=== PATIENT | male | born 1965 | race Caucasian/White ===

== ENCOUNTER 2023-03-30 07:19 | Emergency (ER) | payer OTHER, SELFPAY ==
[2023-03-30 07:24] VITALS: BP 107/64; PULSE 75; TEMP 35.8; O2SAT 98
--- NOTE | 2023-03-30 07:28 | ECG_ITS ---
Measurements Intervals [place] Rate: 76 P: 56 WA: 159 QRS: 11 QRSD: 111 T: -23 QT: 368 QTc: 415 Interpretive Statements SINUS RHYTHM MODERATE VOLTAGE CRITERIA FOR LVH, CONSIDER NORMAL VARIANT [MEETS CRITERIA IN ONE OF: R(aVL), S(V1), R(V5), R(V5/V6)+S(V1)] INFERIOR MYOCARDIAL INFARCTION , OF INDETERMINATE AGE [40+ ms Q WAVE AND/OR ST/T ABNORMALITY IN II/aVF] ABNORMAL ECG NO PREVIOUS ECG AVAILABLE FOR COMPARISON Electronically Signed On 04-03-2023 9:14:05 CDT by Jose Manzano M.D.
[2023-03-30] MEDS: ONDANSETRON INJ 4 MG/2 ML VIAL IV PUSH (07:35)
[2023-03-30] MEDS: PANTOPRAZOLE SODIUM IV 40 MG VIAL IV PUSH (07:35)
[2023-03-30] MEDS: MAG HYDROX/ALUMINUM HYD/SIMETH 30 ML, PHENobarb/HYOSCY/ATROPINE/SCOP 32.4 MG, LIDOCAINE... PO (07:35)
[2023-03-30] MEDS: SODIUM CHLORIDE 0.9% IV 1,000 ML 999 ML IV CONT (07:36)
[2023-03-30 07:46] LABS: Basophils Absolute Auto 0.07 K/mm3 (0.00-0.10); Basophils Percent Auto 0.6 % (0.0-1.0); Eosinophils Absolute Auto 0.06 K/mm3 (0.02-0.50); Eosinophils Percent Auto 0.5 % (1.0-6.0); Hematocrit 40.1 % (40.0-54.0); Hemoglobin 13.1 g/dL (14.0-18.0); Immature Granulocyte Absolute 0.07 K/mm3 (0.00-0.00); Immature Granulocyte Percent A 0.6 % (0.0-0.0); Lymphocytes Absolute Auto 2.34 K/mm3 (1.10-4.50); Lymphocytes Percent Auto 20.4 % (18.0-42.0); Mean Corpuscular HGB Conc 32.7 g/dL (32.0-36.0); Mean Corpuscular Volume 94.8 fL (78.0-102.0); Mean Platelet Volume 10.4 fl (8.7-11.0); Monocytes Absolute Auto 0.83 K/mm3 (0.10-0.90); Monocytes Percent Auto 7.2 % (2.0-11.0); Neutrophils Absolute Auto 8.1 K/mm3 (1.7-7.2); Neutrophils Percent Auto 70.7 % (50.0-70.0); Platelet Count Result 172 K/mm3 (150-420); Red Blood Count 4.23 M/mm3 (4.70-6.10); Red Cell Distribution Width 13.4 % (11.6-14.4); White Blood Count 11.5 K/mm3 (4.8-10.8)
[2023-03-30 08:04] LABS: Alanine Aminotransferase 51 U/L (16-63); Albumin Level 3.9 g/dL (3.4-5.0); Alkaline Phosphatase 43 U/L (46-116); Anion Gap 11 mmol/L (8-16); Aspartate Amino Transferase 46 U/L (15-37); Bilirubin,Total 0.4 mg/dL (0.00-1.00); Blood Urea Nitrogen 17 mg/dL (7-18); Calcium 9.2 mg/dL (8.5-10.1); Carbon Dioxide 25 mmol/L (21-32); Chloride 104 mmol/L (98-108); Estimated CRCL calculation 70 ml/min; Estimated Glomerular Filt Rate 60; Glucose 188 mg/dL (70-99); Lipase 27 U/L (16-77); Osmolality Calculated 296 mOsm/kg (285-295); Potassium 3.7 mmol/L (3.5-5.1); Sodium 140 mmol/L (136-145); Total Protein 8.1 g/dL (6.4-8.2); Troponin I 11.8 ng/L (0.00-60.4)
[2023-03-30 08:18] LABS: Lactic Acid Reflex 1.6 mmol/L (0.4-2.0)
[2023-03-30] MEDS: MORPHINE SULFATE (*CRX) 2 MG/ML INJ IV PUSH (08:21)
--- NOTE | 2023-03-30 08:23 | ED.ABDPAIN ---
HPI - Abdominal Pain General Chief Complaint: Abdominal Pain Stated Complaint: stomach pain Time Seen by Provider: 03/30/23 07:21 Source: patient and family Mode of arrival: ambulatory Limitations: no limitations History of Present Illness HPI narrative: this is a 57-year-old male that presents with some epigastric pain has a history of gastritis and pain and burning sensation started around 2 in the morning and woke patient up, patient did try taking [id number] medication with minimal relief. Patient denies any fever chills does have some nausea with no vomiting no chest pain no shortness of breath. MD elicited complaint: abdominal pain Pertinent past history: gastritis Onset (ago): hour(s) Pain Consistency: constant Location: epigastric Severity: moderate Related Data Home Medications Medication Instructions Recorded Confirmed amlodipine 10 mg tablet 10 mg PO DAILY 03/30/23 03/30/23 hydrochlorothiazide 12.5 mg tablet 12.5 mg PO DAILY 03/30/23 03/30/23 losartan 50 mg tablet 50 mg PO DAILY 03/30/23 03/30/23 naproxen 500 mg tablet 500 mg PO BID PRN Pain (Scale 03/30/23 03/30/23 Score 4-6) simvastatin 10 mg tablet 10 mg PO DAILY 03/30/23 03/30/23 Allergies Allergy/AdvReac Type Severity Reaction Status Date / Time No Known Allergies Allergy Verified 03/30/23 07:28 Review of Systems Review of Systems: All systems reviewed & are unremarkable except as noted in HPI and below PMFSH Past Medical History Medical History Gastritis Exam Const: General: healthy appearing Nutritional Appearance: well nourished Orientation/consciousness: patient oriented x3 HENMT: Head: normal to inspection Eyes: Conjunctivae: conjunctivae normal Neck: Neck: normal visual inspection Chest: Chest palpation & inspection: normal inspection of the chest Resp: Effort & Inspection: normal respiratory effort Cardio: Rate: regular rate Rhythm: regular rhythm GI: GI Palp: Yes Soft to palpation and Yes Tenderness to palpation present (GI) : General: Yes bladder normal to palpation Urinary Catheter: Urinary Catheter: patent and draining Back/Spine/Pelvis: Back: no CVA tenderness Skin: General skin exam: normal color Rashes: no rashes Neuro: General: patient oriented x3 and moves all extremities Extrem: General: normal to inspection Psych: Mental Status: mental status grossly normal Affect: normal affect Other: patient received GI cocktail and IV Protonix with maybe mild relief of his discomfort, does continue to complain of some discomfort at epigastric pain and a dose of 2mg IV morphine is given. Patient had an EKG which will was normal sinus rhythm with no ST or T changes negative troponin and the rest of his blood work reviewed with patient and family. Course Vital Signs Vital signs: Vital Signs Temperature 35.8 C L 03/30/23 07:24 Pulse Rate 75 03/30/23 07:24 Blood Pressure 107/64 03/30/23 07:24 Pulse Oximetry 98 03/30/23 07:24 Oxygen Delivery Room Air 03/30/23 07:24 Temperature 35.8 C L 03/30/23 07:24 Pulse Rate 75 03/30/23 07:24 Blood Pressure 107/64 03/30/23 07:24 Pulse Oximetry 98 03/30/23 07:24 Oxygen Delivery Room Air 03/30/23 07:24 MDM - Abdominal Pain Lab Data 03/30/23 07:41 03/30/23 07:41 Labs: Lab Results 03/30/23 Range/Units 07:41 WBC 11.5 H (4.8-10.8) K/mm3 RBC 4.23 L (4.70-6.10) M/mm3 Hgb 13.1 L (14.0-18.0) g/dL Hct 40.1 (40.0-54.0) % MCV 94.8 (78.0-102.0) fL MCH 31.0 (27.0-31.0) pg MCHC 32.7 (32.0-36.0) g/dL RDW 13.4 (11.6-14.4) % Plt Count 172 (150-420) K/mm3 MPV 10.4 (8.7-11.0) fl Immature Gran % (Auto) 0.6 H (0.0-0.0) % Neut % (Auto) 70.7 H (50.0-70.0) % Lymph % (Auto) 20.4 (18.0-42.0) % [place] % (Auto) 7.2 (2.0-11.0) % Eos % (Auto) 0.5 L (1.0-6.0) % Baso % (Auto) 0.6 (0.0-1.0) % Lymph
[2023-03-30 08:40] VITALS: BP 109/68; PULSE 71; TEMP 36.2; O2SAT 90
== END 2023-03-30 08:50 | disposition home or self-care (01) ==
PROVIDERS: Emergency Provider Emergency Medicine; PCP Physician Assistant
DX: K21.00 Gastro-esophageal reflux disease with esophagitis, without bleeding (principal); Z79.1 Long term (current) use of non-steroidal anti-inflammatories (NSAID)
CPT/HCPCS: 36415; 80053; 83605; 83690; 84484; 85025; 93005; 96361; 96374; 96375; 99284; A9270; C9113; J2270; J2405; J7030

== ENCOUNTER 2023-03-30 09:50 | Emergency (ER) | payer OTHER, SELFPAY ==
--- NOTE | ~2023-03-30 | CT_ITS ---
EXAMINATION: CT abdomen pelvis w con DATE: 03/30/2023 10:22 INDICATION: Right-sided abdominal pain. TECHNIQUE: Computed tomography (CT) of the abdomen and pelvis was performed with 100 mL Omnipaque 350 intravenous contrast. Automated exposure control and iterative reconstruction technique were employe d. The dose-length product was 1197.56 mGy-cm. COMPARISON: None. FINDINGS: The visualized portions of the lung bases demonstrate mild atelectasis. No pleural effusion . The heart size is normal. There are coronary artery calcifications. No pericardial effusion. There is diffuse hepatic steatosis. There are gallstones in the gallbladder and cystic duct. The gallbladde r is distended with wall thickening. The spleen, pancreas, adrenal glands, and right kidney are valdo l. There is a 19 mm cyst in left kidney. There are no dilated loops of bowel. The appendix is not vis ualized. There is fat in left inguinal canal that may be a hernia. There are no pathologically enlarg ed lymph nodes. There is no free intraperitoneal fluid. Aortic atherosclerosis is noted. There is mod erate thoracic and lumbar spondylosis. There is mild chronic anterior wedging of multiple vertebral b odies. IMPRESSION: 1. Acute cholecystitis. 2. Diffuse hepatic steatosis. Reviewed, dictated and finalized at location A.
--- NOTE | ~2023-03-30 | US_ITS ---
Limited Abdominal Sonogram: Real-time sonographic imaging of the right upper quadrant was performed. Clinical History: Right upper quadrant pain Findings: The liver appears echogenic, with no evidence of mass lesion or bile duct dilatation. Main portal vein demonstrates normal direction of flow. The gallbladder is well distended, with questiona ble gallstone the gallbladder neck. No definite gallbladder wall thickening. The common bile duct shayan sures 7 mm. The pancreas is obscured by bowel gas shadowing. Impression: Diffuse fatty infiltration of liver. Questionable poorly seen gallstone at the gallbladder neck. No gallbladder wall thickening. Patient d oes report positive sonographic Granados's sign. Consider HIDA scan as indicated for further evaluation . Reviewed, dictated and finalized at location . Impression: Diffuse fatty infiltration of liver. Questionable poorly seen gallstone at the gallbladder neck. No gallbladder wall thickening. Patient does report positive sonographic Granados's sign. Consider H GUZMAN scan as indicated for further evaluation.
[2023-03-30 09:52] VITALS: BP 125/74; PULSE 77; TEMP 36.3; O2SAT 95
[2023-03-30] MEDS: SODIUM CHLORIDE 0.9% IV 1,000 ML 999 ML IV CONT (10:24)
[2023-03-30] MEDS: HYDROmorphone HCL INJ (*CRX) 2 MG/ML VIAL 1 MG IV PUSH (10:25)
--- NOTE | 2023-03-30 11:25 | ED.ABDPAIN ---
HPI - Abdominal Pain General Chief Complaint: Abdominal Pain Stated Complaint: stomach pain Time Seen by Provider: 03/30/23 09:52 Source: patient and family Mode of arrival: ambulatory Limitations: no limitations History of Present Illness HPI narrative: this is a 57-year-old gentleman with a history of gastritis recently discharged but returned to the emergency department because of worsening abdominal pain no localizing to the right upper quadrant, with some no fever chills does have some nausea his pain level currently is 8/10 with some no chest pain no shortness of breath no flank pain no dysuria no hematuria no fever chills. MD elicited complaint: abdominal pain Related Data Home Medications Medication Instructions Recorded Confirmed amlodipine 10 mg tablet 10 mg PO DAILY 03/30/23 03/30/23 hydrochlorothiazide 12.5 mg tablet 12.5 mg PO DAILY 03/30/23 03/30/23 losartan 50 mg tablet 50 mg PO DAILY 03/30/23 03/30/23 naproxen 500 mg tablet 500 mg PO BID PRN Pain (Scale 03/30/23 03/30/23 Score 4-6) simvastatin 10 mg tablet 10 mg PO DAILY 03/30/23 03/30/23 Allergies Allergy/AdvReac Type Severity Reaction Status Date / Time No Known Allergies Allergy Verified 03/30/23 07:28 Review of Systems Review of Systems: All systems reviewed & are unremarkable except as noted in HPI and below PMFSH Past Medical History Medical History Gastritis Exam Const: General: ill appearing Nutritional Appearance: obese Orientation/consciousness: patient oriented x3 Limitations: no limitations HENMT: Head: normal to inspection Eyes: Conjunctivae: conjunctivae normal Pupils: Equal, round and reactive pupils present EOM: EOMs intact bilaterally Direct Ophthalmoscopy: no photophobia Neck: Neck: normal visual inspection Chest: Chest palpation & inspection: normal inspection of the chest Resp: Effort & Inspection: normal respiratory effort Auscultation: clear to auscultation bilaterally Cardio: Rate: regular rate Rhythm: regular rhythm GI: GI Palp: Yes Soft to palpation and Yes Tenderness to palpation present (GI) Other: Right upper quadrant tenderness with palpation : General: Yes bladder normal to palpation Urinary Catheter: Urinary Catheter: patent and draining Back/Spine/Pelvis: Back: no CVA tenderness Skin: General skin exam: normal color Rashes: no rashes Wounds: no wounds Neuro: General: patient oriented x3 Cranial nerves: Yes Nystagmus not present Extrem: General: normal to inspection Psych: Mental Status: mental status grossly normal Affect: normal affect Course Course Emergency Course: patient pain level initially at around 8/10 localized to the right upper quadrant did receive 1mg IV Dilaudid and after reassessment of patient his pain level has a significantly improved. The patient had a CT scan which showed a acute cholecystitis /ultrasound performed shows gallstone at the gallbladder neck and cystic duct. Patient received IV fluids pain control, also received a dose of IV Zosyn and labs reviewed with patient and family. spoke to hospitalist at [facility] that accepted the patient for transfer. Dr Acosta Vital Signs Vital signs: Vital Signs Temperature 36.3 C L 03/30/23 09:52 Pulse Rate 77 03/30/23 09:52 Blood Pressure 125/74 03/30/23 09:52 Pulse Oximetry 95 03/30/23 09:52 Oxygen Delivery Room Air 03/30/23 09:52 Temperature 36.3 C L 03/30/23 09:52 Pulse Rate 77 03/30/23 09:52 Blood Pressure 125/74 03/30/23 09:52 Pulse Oximetry 95 03/30/23 09:52 Oxygen Delivery Room Air 03/30/23 09:52 MDM - Abdominal Pain Imaging Data Radiologist's impression: ITS Impressions Abdomen/Pelvis CT 03/30/23 10:28 IMPRESSION: 1. Acute cholecystitis. 2. Diffuse hepatic steatosis. Abdomen Ultrasound 03/30/23 11:15 Impression: Diffuse fatty infiltration of li
[2023-03-30 11:40] VITALS: BP 123/70; PULSE 82; TEMP 36.4; O2SAT 93
[2023-03-30 13:01] VITALS: BP 104/64; PULSE 76; TEMP 36.6; O2SAT 91
[2023-03-30 15:00] VITALS: BP 110/72; PULSE 78; RESP 20; O2SAT 94
[2023-03-30 15:59] VITALS: BP 111/75; PULSE 74; RESP 20; TEMP 36.9; O2SAT 94
== END 2023-03-30 15:55 | disposition short-term general hospital (02) ==
PROVIDERS: Emergency Provider Emergency Medicine; PCP Physician Assistant
DX: K81.9 Cholecystitis, unspecified (principal); Z79.1 Long term (current) use of non-steroidal anti-inflammatories (NSAID)
CPT/HCPCS: 74177; 76705; 96361; 96365; 96375; 99285; J1170; J2543; J7030; Q9967